=== PATIENT | male | born 1955 | race Caucasian/White ===

== ENCOUNTER 2021-02-09 02:00 | Emergency (ER) | payer OTHER, MEDICARE ==
[~2021-02-09] VITALS: Ht 180.3 cm; Wt 72.6 kg
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
--- NOTE | 2021-02-09 02:19 | NUR ---
PATIENT TAKEN TO CT
[2021-02-09] MEDS ORDERED: ACETAMINOPHEN ES 500 MG TABLET ONE (02:20)
[2021-02-09] MEDS ORDERED: IBUPROFEN 600 MG TABLET ONE (02:21)
--- NOTE | 2021-02-09 02:29 | NUR ---
PATIENT RETURNED FROM CT
[2021-02-09] MEDS ORDERED: IBUPROFEN 600 MG TABLET PO ONE (02:30)
[2021-02-09] MEDS ORDERED: ACETAMINOPHEN ES 500 MG TABLET PO ONE (02:30)
[2021-02-09] MEDS ORDERED: IBUP-1957 PO (03:03)
--- NOTE | 2021-02-09 03:13 | NUR ---
Patient discharged to home in stable condition. RX Written and verbal after care instructions given. Patient verbalizes understanding of instruction. 2 POLICE AT BEDSIDE; OKAY TO BOOK PER SHAHLA NAM.
[2021-02-09 03:21] VITALS: BP 120/79
== END 2021-02-09 03:21 | disposition home or self-care (01) ==
LOC: ER 02:02
DX: S02.2XXA Fracture of nasal bones, initial encounter for closed fracture (principal); S00.83XA Contusion of other part of head, initial encounter; S00.12XA Contusion of left eyelid and periocular area, initial encounter; Z60.2 Problems related to living alone; Y08.89XA Assault by other specified means, initial encounter; Y93.89 Activity, other specified; Y92.89 Other specified places as the place of occurrence of the external cause; Y99.8 Other external cause status
CPT/HCPCS: 70450-TC; 70486-TC; 72125-TC